=== PATIENT | female | born 1945 | race Caucasian/White ===

== ENCOUNTER 2021-11-09 08:17 | Inpatient (IN) | payer OTHER ==
[~2021-11-09] VITALS: Ht 162.6 cm; Wt 88.0 kg
[2021-11-09] VITALS (10 sets, daily range): BP systolic 106–150; BP diastolic 55–98
[~2021-11-09 08:17] MED LIST: ALEVE PM CAPLE1 EACH PO; ALEVE220 M1 PO; AMLODIPINE BESYL5 MG PO; ASPIR 8181 MG PO; ATORVASTATIN CA40 M1 PO; CIPROFLOXACIN500 MG PO; E-GEMS100 IU PO; FEOSOL45 M1 PO; INDOCIN50 MG PO; INDOMETHACIN50 MG PO; JANUMET 500 MG-1 TA1 PO; MOTRIN800 MG PO; NAPROSYN500 MG PO; NEXIUM40 MG PO
[2021-11-09 08:54] LABS: BASO % 0.3 % (0.0-1.0); EOS % 0.3 % (1.0-4.0); LYMPH # 1.2 10*3/uL (1.3-4.4); MEAN CELL VOLUME 95.8 fl (81.0-99.0); MEAN CORPUSCULAR HGB CONC 32.3 g/dl (33.0-37.0); MEAN PLATELET VOLUME 11.9 fl (9.6-12.3); MONO # 0.5 10*3/uL (0.1-1.0); MONO % 16.7 % (3.0-9.0); NEUT # 1.4 10*3/uL (2.3-7.9); NEUT % 44.1 % (47.0-73.0); NUCLEATED RED BLOOD CELL 0.9 % (0.0-0.0); PLATELET COUNT AUTOMATED 133 10*3/uL (130-400); RED BLOOD COUNT 3.13 10*6/uL (4.10-5.10); RED CELL DISTRI WIDTH 17.5 % (0-14.5); WHITE BLOOD COUNT 3.2 10*3/uL (4.8-10.8)
[2021-11-09 09:20] LABS: CREATININE 2.88 mg/dL (0.55-1.02); POTASSIUM 4.3 mmol/L (3.5-5.1); TOTAL PROTEIN 6.2 gm/dL (6.4-8.2)
[2021-11-09] MEDS ORDERED: NEURONTIN300 MG PO (15:24)
[2021-11-09] MEDS ORDERED: LISINOPRIL2.5 MG PO (15:27)
[2021-11-09] MEDS ORDERED: HYDROXYZINE HCL50 MG PO (15:27)
[2021-11-09] MEDS ORDERED: LIPITOR20 MG PO (15:28)
[2021-11-09] MEDS ORDERED: AMARYL4 MG PO (15:29)
[2021-11-09] MEDS ORDERED: BUSPIRONE10 MG PO (15:29)
[2021-11-09] MEDS ORDERED: BASAG SOL SC (15:31)
[2021-11-09] MEDS ORDERED: GLUCOPHAGE500 MG PO (15:32)
[2021-11-10] VITALS (12 sets, daily range): BP systolic 98–132; BP diastolic 42–84
[2021-11-10 04:53] LABS: HEMATOCRIT 27.4 % (37.0-47.0); MEAN CELL VOLUME 97.2 fl (81.0-99.0); MEAN CORPUSCULAR HGB 30.9 pg (27.0-31.0); MEAN CORPUSCULAR HGB CONC 31.8 g/dl (33.0-37.0); MEAN PLATELET VOLUME 11.9 fl (9.6-12.3); NUCLEATED RED BLOOD CELL 1.4 % (0.0-0.0); PLATELET COUNT AUTOMATED 112 10*3/uL (130-400); RED BLOOD COUNT 2.82 10*6/uL (4.10-5.10); WHITE BLOOD COUNT 2.9 10*3/uL (4.8-10.8)
[2021-11-10 05:16] LABS: ACT PARTIAL THROMBO TIME 31.1 SECONDS (20.0-32.1); INTERNATIONAL NORM RATIO 1.3 (2.0-3.5)
[2021-11-10 05:59] LABS: CREATININE 2.7 mg/dL (0.55-1.02); POTASSIUM 4.1 mmol/L (3.5-5.1); TOTAL PROTEIN 5.5 gm/dL (6.4-8.2)
[2021-11-10 06:06] LABS: FREE T4 1.21 ng/dl (0.76-1.46); THYROID STIM HORMONE (HS) 2.5 uIU/ml (0.358-4.75)
[2021-11-10 06:43] LABS: MANUAL DIFF REFLEX YES
[2021-11-10 06:46] LABS: ATYPICAL LYMPHS 1 % (0-0); OVALOCYTES FEW; PLATELET SUFFICIENCY LOW (NORMAL); POLYCHROMASIA SLIGHT; TARGET CELLS FEW; TOTAL CELLS COUNTED 100 #CELLS
[2021-11-11] VITALS (8 sets, daily range): BP systolic 90–104; BP diastolic 48–73
[2021-11-11 06:26] LABS: HEMATOCRIT 27.6 % (37.0-47.0); MEAN CELL VOLUME 99.3 fl (81.0-99.0); MEAN CORPUSCULAR HGB 31.3 pg (27.0-31.0); MEAN CORPUSCULAR HGB CONC 31.5 g/dl (33.0-37.0); MEAN PLATELET VOLUME 11.8 fl (9.6-12.3); NUCLEATED RED BLOOD CELL 1.1 % (0.0-0.0); PLATELET COUNT AUTOMATED 112 10*3/uL (130-400); RED BLOOD COUNT 2.78 10*6/uL (4.10-5.10); RED CELL DISTRI WIDTH 18.8 % (0-14.5); WHITE BLOOD COUNT 2.8 10*3/uL (4.8-10.8)
[2021-11-11 06:35] LABS: POTASSIUM 4.2 mmol/L (3.5-5.1)
[2021-11-11 06:37] LABS: MANUAL DIFF REFLEX YES
[2021-11-11 06:44] LABS: CREATININE 2.87 mg/dL (0.55-1.02); TOTAL PROTEIN 5.5 gm/dL (6.4-8.2)
[2021-11-11 07:47] LABS: BASOPHILS 1 % (0-1); OVALOCYTES FEW; PLATELET SUFFICIENCY LOW (NORMAL); POLYCHROMASIA SLIGHT; TOTAL CELLS COUNTED 100 #CELLS
[2021-11-12 05:20] LABS: CREATININE 3.35 mg/dL (0.55-1.02); POTASSIUM 4.6 mmol/L (3.5-5.1); TOTAL PROTEIN 5.5 gm/dL (6.4-8.2)
[2021-11-12 06:08] LABS: BASO % 0.6 % (0.0-1.0); EOS % 0.9 % (1.0-4.0); HEMATOCRIT 27.7 % (37.0-47.0); LYMPH # 1.7 10*3/uL (1.3-4.4); LYMPH % 49.3 % (27.0-41.0); MEAN CELL VOLUME 100.7 fl (81.0-99.0); MEAN CORPUSCULAR HGB 31.6 pg (27.0-31.0); MEAN CORPUSCULAR HGB CONC 31.4 g/dl (33.0-37.0); MEAN PLATELET VOLUME 11.8 fl (9.6-12.3); MONO # 0.3 10*3/uL (0.1-1.0); NEUT # 1.3 10*3/uL (2.3-7.9); NUCLEATED RED BLOOD CELL 0.6 % (0.0-0.0); PLATELET COUNT AUTOMATED 112 10*3/uL (130-400); RED BLOOD COUNT 2.75 10*6/uL (4.10-5.10); RED CELL DISTRI WIDTH 19.1 % (0-14.5); WHITE BLOOD COUNT 3.4 10*3/uL (4.8-10.8)
[2021-11-12 08:00] VITALS: BP 102/58
[2021-11-12 12:00] VITALS: BP 100/54
[2021-11-12 16:00] VITALS: BP 96/73
[2021-11-12 20:00] VITALS: BP 101/56
[2021-11-13] VITALS: BP 99/77
[2021-11-13 06:21] LABS: BASO % 0.6 % (0.0-1.0); EOS % 0.9 % (1.0-4.0); HEMATOCRIT 27.1 % (37.0-47.0); LYMPH % 42.9 % (27.0-41.0); MEAN CELL VOLUME 100.7 fl (81.0-99.0); MEAN CORPUSCULAR HGB 31.6 pg (27.0-31.0); MEAN CORPUSCULAR HGB CONC 31.4 g/dl (33.0-37.0); MEAN PLATELET VOLUME 11.5 fl (9.6-12.3); MONO # 0.5 10*3/uL (0.1-1.0); MONO % 9.9 % (3.0-9.0); NEUT # 2.1 10*3/uL (2.3-7.9); NEUT % 44.6 % (47.0-73.0); NUCLEATED RED BLOOD CELL 0.4 % (0.0-0.0); PLATELET COUNT AUTOMATED 108 10*3/uL (130-400); RED BLOOD COUNT 2.69 10*6/uL (4.10-5.10); RED CELL DISTRI WIDTH 18.9 % (0-14.5); WHITE BLOOD COUNT 4.6 10*3/uL (4.8-10.8)
[2021-11-13 06:41] LABS: CREATININE 3.49 mg/dL (0.55-1.02); POTASSIUM 4.9 mmol/L (3.5-5.1); TOTAL PROTEIN 5.4 gm/dL (6.4-8.2)
[2021-11-13 08:00] VITALS: BP 97/71
[2021-11-13 12:00] VITALS: BP 140/80
[2021-11-13 16:00] VITALS: BP 90/52
[2021-11-13 20:00] VITALS: BP 117/58
[2021-11-14] VITALS: BP 93/61
[2021-11-14 05:20] VITALS: BP 124/100
[2021-11-14 05:57] LABS: BASO % 0.3 % (0.0-1.0); EOS # 0.1 10*3/uL (0.0-0.4); EOS % 0.8 % (1.0-4.0); HEMATOCRIT 25.9 % (37.0-47.0); LYMPH # 2.1 10*3/uL (1.3-4.4); LYMPH % 33.9 % (27.0-41.0); MEAN CELL VOLUME 101.6 fl (81.0-99.0); MEAN CORPUSCULAR HGB 31.8 pg (27.0-31.0); MEAN CORPUSCULAR HGB CONC 31.3 g/dl (33.0-37.0); MEAN PLATELET VOLUME 11.5 fl (9.6-12.3); MONO # 0.7 10*3/uL (0.1-1.0); MONO % 10.8 % (3.0-9.0); NEUT # 3.2 10*3/uL (2.3-7.9); NUCLEATED RED BLOOD CELL 0.3 % (0.0-0.0); PLATELET COUNT AUTOMATED 103 10*3/uL (130-400); RED BLOOD COUNT 2.55 10*6/uL (4.10-5.10); RED CELL DISTRI WIDTH 18.9 % (0-14.5)
[2021-11-14 06:10] LABS: ALKALINE PHOSPHATASE 249 U/L (45-117); CHLORIDE 106 mmol/L (98-107); CREATININE 3.43 mg/dL (0.55-1.02); POTASSIUM 5.1 mmol/L (3.5-5.1); SGOT/AST 35 IU/L (3-35); SGPT/ALT 72 U/L (12-78); SODIUM 136 mmol/L (136-145); TOTAL PROTEIN 5.6 gm/dL (6.4-8.2)
[2021-11-14 06:49] LABS: BUN 56 mg/dl (7-24)
[2021-11-14 12:00] VITALS: BP 120/62
[2021-11-14 16:00] VITALS: BP 100/57
[2021-11-14 20:00] VITALS: BP 137/88
[2021-11-15 04:28] LABS: BILIRUBIN Negative (Negative); BLOOD 2+ (Negative); CLARITY Cloudy (Clear); COLOR Yellow (Yellow); GLUCOSE Negative (Negative); KETONE Negative (Negative); LEUKO ESTERASE 1+ (Negative); NITRITE Negative (Negative); SPECIFIC GRAVITY 1.015 (1.001-1.030); UROBILINOGEN 0.2 E.U./dl (0.0-1.0)
[2021-11-15 04:58] LABS: BACTERIA 1+; EPITHELIAL CELLS 0-2; RBC 21-30 rbc/hpf (0-2); YEAST 1+
[2021-11-15 06:04] LABS: CREATININE 3.75 mg/dL (0.55-1.02); POTASSIUM 5.4 mmol/L (3.5-5.1)
[2021-11-15 06:23] VITALS: BP 97/57
[2021-11-15 06:27] LABS: BASO % 0.5 % (0.0-1.0); EOS # 0.1 10*3/uL (0.0-0.4); HEMATOCRIT 25.4 % (37.0-47.0); LYMPH # 2.1 10*3/uL (1.3-4.4); MEAN CELL VOLUME 100.8 fl (81.0-99.0); MEAN CORPUSCULAR HGB CONC 30.7 g/dl (33.0-37.0); MEAN PLATELET VOLUME 11.8 fl (9.6-12.3); MONO # 0.6 10*3/uL (0.1-1.0); MONO % 9.9 % (3.0-9.0); NEUT # 3.2 10*3/uL (2.3-7.9); NEUT % 53.1 % (47.0-73.0); PLATELET COUNT AUTOMATED 117 10*3/uL (130-400); RED BLOOD COUNT 2.52 10*6/uL (4.10-5.10); RED CELL DISTRI WIDTH 19.4 % (0-14.5); WHITE BLOOD COUNT 6.1 10*3/uL (4.8-10.8)
[2021-11-15 08:00] VITALS: BP 140/84
[2021-11-15 12:00] VITALS: BP 120/58
[2021-11-15 16:00] VITALS: BP 124/58
[2021-11-15 20:00] VITALS: BP 92/54
[2021-11-16] VITALS: BP 102/62
[2021-11-16 05:32] LABS: CREATININE 4.14 mg/dL (0.55-1.02)
[2021-11-16 05:36] LABS: POTASSIUM 6.1 mmol/L (3.5-5.1)
[2021-11-16 06:24] LABS: BASO % 0.4 % (0.0-1.0); EOS # 0.1 10*3/uL (0.0-0.4); EOS % 0.6 % (1.0-4.0); HEMATOCRIT 26.3 % (37.0-47.0); LYMPH # 1.9 10*3/uL (1.3-4.4); LYMPH % 24.8 % (27.0-41.0); MEAN CELL VOLUME 101.2 fl (81.0-99.0); MEAN CORPUSCULAR HGB 30.8 pg (27.0-31.0); MEAN CORPUSCULAR HGB CONC 30.4 g/dl (33.0-37.0); MEAN PLATELET VOLUME 11.6 fl (9.6-12.3); MONO # 0.8 10*3/uL (0.1-1.0); MONO % 10.2 % (3.0-9.0); NEUT # 4.9 10*3/uL (2.3-7.9); NEUT % 62.8 % (47.0-73.0); PLATELET COUNT AUTOMATED 133 10*3/uL (130-400); RED CELL DISTRI WIDTH 19.8 % (0-14.5); WHITE BLOOD COUNT 7.8 10*3/uL (4.8-10.8)
[2021-11-16 08:00] VITALS: BP 105/56
[2021-11-16 12:00] VITALS: BP 122/50
[2021-11-16 16:00] VITALS: BP 102/52
[2021-11-16 17:12] LABS: CREATININE 4.2 mg/dL (0.55-1.02); POTASSIUM 5.5 mmol/L (3.5-5.1)
[2021-11-16 20:00] VITALS: BP 102/58
[2021-11-17] VITALS: BP 98/52
[2021-11-17 06:19] LABS: BASO % 0.4 % (0.0-1.0); EOS # 0.1 10*3/uL (0.0-0.4); EOS % 0.9 % (1.0-4.0); HEMATOCRIT 23.3 % (37.0-47.0); LYMPH # 2.2 10*3/uL (1.3-4.4); LYMPH % 39.4 % (27.0-41.0); MEAN CELL VOLUME 103.1 fl (81.0-99.0); MEAN CORPUSCULAR HGB 31.9 pg (27.0-31.0); MEAN CORPUSCULAR HGB CONC 30.9 g/dl (33.0-37.0); MEAN PLATELET VOLUME 11.4 fl (9.6-12.3); MONO # 0.5 10*3/uL (0.1-1.0); MONO % 8.9 % (3.0-9.0); NEUT # 2.8 10*3/uL (2.3-7.9); NEUT % 49.9 % (47.0-73.0); PLATELET COUNT AUTOMATED 123 10*3/uL (130-400); RED BLOOD COUNT 2.26 10*6/uL (4.10-5.10); RED CELL DISTRI WIDTH 19.9 % (0-14.5); WHITE BLOOD COUNT 5.6 10*3/uL (4.8-10.8)
[2021-11-17 06:20] LABS: CREATININE 4.3 mg/dL (0.55-1.02); POTASSIUM 5.6 mmol/L (3.5-5.1)
[2021-11-17 08:00] VITALS: BP 102/60; BP 87/56
[2021-11-17 12:00] VITALS: BP 98/54
[2021-11-17 16:00] VITALS: BP 96/60
[2021-11-17 20:00] VITALS: BP 100/60
[2021-11-18] VITALS: BP 102/54
[2021-11-18 05:35] LABS: ALKALINE PHOSPHATASE 161 U/L (45-117); BUN 67 mg/dl (7-24); CHLORIDE 105 mmol/L (98-107); CREATININE 4.01 mg/dL (0.55-1.02); POTASSIUM 4.8 mmol/L (3.5-5.1); SGOT/AST 12 IU/L (3-35); SGPT/ALT 38 U/L (12-78); SODIUM 136 mmol/L (136-145); TOTAL PROTEIN 5.8 gm/dL (6.4-8.2)
[2021-11-18 06:05] LABS: BASO % 0.4 % (0.0-1.0); EOS # 0.1 10*3/uL (0.0-0.4); EOS % 0.9 % (1.0-4.0); HEMATOCRIT 24.5 % (37.0-47.0); LYMPH # 2.2 10*3/uL (1.3-4.4); LYMPH % 39.2 % (27.0-41.0); MEAN CELL VOLUME 102.1 fl (81.0-99.0); MEAN CORPUSCULAR HGB 31.3 pg (27.0-31.0); MEAN CORPUSCULAR HGB CONC 30.6 g/dl (33.0-37.0); MEAN PLATELET VOLUME 11.1 fl (9.6-12.3); MONO # 0.5 10*3/uL (0.1-1.0); MONO % 9.9 % (3.0-9.0); NEUT # 2.7 10*3/uL (2.3-7.9); NEUT % 48.9 % (47.0-73.0); PLATELET COUNT AUTOMATED 144 10*3/uL (130-400); RED CELL DISTRI WIDTH 19.9 % (0-14.5); WHITE BLOOD COUNT 5.5 10*3/uL (4.8-10.8)
[2021-11-18 09:11] VITALS: BP 90/60
[2021-11-18 12:00] VITALS: BP 86/58
[2021-11-18 14:47] VITALS: BP 84/54
[2021-11-19] VITALS: BP 92/44
[2021-11-19 05:54] LABS: CREATININE 3.92 mg/dL (0.55-1.02); POTASSIUM 4.4 mmol/L (3.5-5.1)
[2021-11-19 06:23] LABS: BASO % 0.3 % (0.0-1.0); EOS # 0.1 10*3/uL (0.0-0.4); EOS % 0.9 % (1.0-4.0); LYMPH # 1.9 10*3/uL (1.3-4.4); LYMPH % 32.6 % (27.0-41.0); MEAN CELL VOLUME 103.4 fl (81.0-99.0); MEAN PLATELET VOLUME 11.5 fl (9.6-12.3); MONO # 0.6 10*3/uL (0.1-1.0); MONO % 10.2 % (3.0-9.0); NEUT # 3.2 10*3/uL (2.3-7.9); NEUT % 55.3 % (47.0-73.0); PLATELET COUNT AUTOMATED 140 10*3/uL (130-400); RED BLOOD COUNT 2.32 10*6/uL (4.10-5.10); RED CELL DISTRI WIDTH 20.7 % (0-14.5); WHITE BLOOD COUNT 5.8 10*3/uL (4.8-10.8)
[2021-11-19 08:37] VITALS: BP 92/40
[2021-11-20 00:05] VITALS: BP 86/52
[2021-11-20 04:46] VITALS: BP 82/48
[2021-11-20 05:32] LABS: POTASSIUM 3.6 mmol/L (3.5-5.1)
[2021-11-20 05:34] VITALS: BP 88/50
[2021-11-20 06:19] LABS: BASO % 0.3 % (0.0-1.0); EOS % 0.7 % (1.0-4.0); HEMATOCRIT 24.5 % (37.0-47.0); LYMPH # 1.9 10*3/uL (1.3-4.4); LYMPH % 32.9 % (27.0-41.0); MEAN CELL VOLUME 102.1 fl (81.0-99.0); MEAN CORPUSCULAR HGB 31.7 pg (27.0-31.0); MEAN PLATELET VOLUME 11.3 fl (9.6-12.3); MONO # 0.6 10*3/uL (0.1-1.0); MONO % 10.3 % (3.0-9.0); NEUT # 3.2 10*3/uL (2.3-7.9); NEUT % 54.9 % (47.0-73.0); PLATELET COUNT AUTOMATED 169 10*3/uL (130-400); RED CELL DISTRI WIDTH 20.5 % (0-14.5); WHITE BLOOD COUNT 5.8 10*3/uL (4.8-10.8)
[2021-11-20 08:00] VITALS: BP 145/92
[2021-11-20 16:00] VITALS: BP 92/62
[2021-11-20 20:00] VITALS: BP 104/52
[2021-11-21] VITALS: BP 90/50
[2021-11-21 05:32] LABS: POTASSIUM 3.7 mmol/L (3.5-5.1)
[2021-11-21 05:45] VITALS: BP 88/48
[2021-11-21 06:05] LABS: BASO % 0.2 % (0.0-1.0); EOS # 0.1 10*3/uL (0.0-0.4); EOS % 0.9 % (1.0-4.0); HEMATOCRIT 23.6 % (37.0-47.0); LYMPH # 1.8 10*3/uL (1.3-4.4); LYMPH % 31.9 % (27.0-41.0); MEAN CELL VOLUME 101.7 fl (81.0-99.0); MEAN CORPUSCULAR HGB 31.5 pg (27.0-31.0); MEAN CORPUSCULAR HGB CONC 30.9 g/dl (33.0-37.0); MONO # 0.6 10*3/uL (0.1-1.0); MONO % 10.9 % (3.0-9.0); NEUT # 3.1 10*3/uL (2.3-7.9); NEUT % 55.4 % (47.0-73.0); PLATELET COUNT AUTOMATED 173 10*3/uL (130-400); RED BLOOD COUNT 2.32 10*6/uL (4.10-5.10); RED CELL DISTRI WIDTH 21.2 % (0-14.5); WHITE BLOOD COUNT 5.6 10*3/uL (4.8-10.8)
[2021-11-21] MEDS ORDERED: AMIODARONE HYD200 MG PO (11:06)
[2021-11-21] MEDS ORDERED: PACERONE200 MG PO (11:06)
[2021-11-21] MEDS ORDERED: ATORVASTATIN CA40 M1 PO (11:06)
[2021-11-21] MEDS ORDERED: METOPROLOL SUCC25 M2 PO (11:06)
[2021-11-21] MEDS ORDERED: ELIQUIS5 M1 PO (11:06)
[2021-11-21] MEDS ORDERED: ZOFRAN4 MG PO (11:06)
[2021-11-21] MEDS ORDERED: NEURONTIN300 MG PO (11:06)
[2021-11-21] MEDS ORDERED: Duragesic 50 M50 MCG T (11:08)
[2021-11-21] MEDS ORDERED: COLACE100 MG PO (11:08)
[2021-11-21 12:00] VITALS: BP 94/50
== END 2021-11-21 14:44 | DRG 682 ==
LOC: ED 08:17 → 4E 10:15 → EDHOLD 10:15 → 4E 12:57
PROVIDERS: Emergency Medicine; Internal Medicine; Internal Medicine Nephrology; ADMIT Family Medicine; ATTEND Family Medicine
DX: N17.0 Acute kidney failure with tubular necrosis (principal); E43 Unspecified severe protein-calorie malnutrition; I13.0 Hypertensive heart and chronic kidney disease with heart failure and stage 1 through stage 4 chronic kidney disease, or unspecified chronic kidney disease; E87.1 Hypo-osmolality and hyponatremia; R65.10 Systemic inflammatory response syndrome (SIRS) of non-infectious origin without acute organ dysfunction; K57.32 Diverticulitis of large intestine without perforation or abscess without bleeding; C56.9 Malignant neoplasm of unspecified ovary; I43 Cardiomyopathy in diseases classified elsewhere; N18.4 Chronic kidney disease, stage 4 (severe); I48.91 Unspecified atrial fibrillation; K59.00 Constipation, unspecified; Z66 Do not resuscitate; Z51.5 Encounter for palliative care; I50.9 Heart failure, unspecified; E11.22 Type 2 diabetes mellitus with diabetic chronic kidney disease; E11.65 Type 2 diabetes mellitus with hyperglycemia; Z20.822 Contact with and (suspected) exposure to COVID-19; D53.9 Nutritional anemia, unspecified; E87.5 Hyperkalemia; F43.23 Adjustment disorder with mixed anxiety and depressed mood; Z88.8 Allergy status to other drugs, medicaments and biological substances; Z79.899 Other long term (current) drug therapy; Z82.49 Family history of ischemic heart disease and other diseases of the circulatory system; Z83.3 Family history of diabetes mellitus; Z92.21 Personal history of antineoplastic chemotherapy; Z90.49 Acquired absence of other specified parts of digestive tract; Z90.710 Acquired absence of both cervix and uterus; I25.2 Old myocardial infarction

== ENCOUNTER 2021-11-27 15:17 | Emergency (ER) | payer OTHER ==
[~2021-11-27] VITALS: Ht 162.5 cm; Wt 79.4 kg
[~2021-11-27 15:17] MED LIST changes: +AMARYL4 MG PO; +AMIODARONE HYD200 MG PO; +BASAG SOL SC; +BUSPIRONE10 MG PO; +COLACE100 MG PO; +Duragesic 50 M50 MCG T; +ELIQUIS5 M1 PO; +GLUCOPHAGE500 MG PO; +HYDROXYZINE HCL50 MG PO; +LIPITOR20 MG PO; +LISINOPRIL2.5 MG PO; +METOPROLOL SUCC25 M2 PO; +NEURONTIN300 MG PO; +PACERONE200 MG PO; +ZOFRAN4 MG PO
== END 2021-11-27 18:48 | disposition home or self-care (01) ==
LOC: ED 15:17
DX: K59.00 Constipation, unspecified (principal); Z88.8 Allergy status to other drugs, medicaments and biological substances; Z79.899 Other long term (current) drug therapy; Z98.51 Tubal ligation status; Z90.49 Acquired absence of other specified parts of digestive tract

== ENCOUNTER 2021-12-24 13:52 | Inpatient (IN) | payer OTHER ==
[~2021-12-24] VITALS: Ht 162.6 cm; Wt 90.4 kg
[2021-12-24] VITALS (7 sets, daily range): BP systolic 92–132; BP diastolic 44–79
[2021-12-24 14:38] LABS: BASO % 0.5 % (0.0-1.0); EOS % 0.5 % (1.0-4.0); HEMATOCRIT 31.1 % (37.0-47.0); LYMPH # 1.2 10*3/uL (1.3-4.4); LYMPH % 18.2 % (27.0-41.0); MEAN CELL VOLUME 104.4 fl (81.0-99.0); MEAN CORPUSCULAR HGB 31.9 pg (27.0-31.0); MEAN CORPUSCULAR HGB CONC 30.5 g/dl (33.0-37.0); MEAN PLATELET VOLUME 10.6 fl (9.6-12.3); MONO # 0.3 10*3/uL (0.1-1.0); MONO % 5.3 % (3.0-9.0); NEUT # 4.8 10*3/uL (2.3-7.9); NEUT % 75.2 % (47.0-73.0); PLATELET COUNT AUTOMATED 149 10*3/uL (130-400); RED BLOOD COUNT 2.98 10*6/uL (4.10-5.10); RED CELL DISTRI WIDTH 18.2 % (0-14.5); WHITE BLOOD COUNT 6.4 10*3/uL (4.8-10.8)
[2021-12-24 14:53] LABS: CREATININE 3.69 mg/dL (0.55-1.02); TOTAL PROTEIN 6.2 gm/dL (6.4-8.2)
[2021-12-24] MEDS ORDERED: XARE20MG PO (17:19)
[2021-12-24] MEDS ORDERED: LASIX20 MG PO (17:19)
[2021-12-24] MEDS ORDERED: LOPRESSOR25 MG PO (17:20)
[2021-12-25] VITALS (8 sets, daily range): BP systolic 92–122; BP diastolic 50–71
[2021-12-25 06:36] LABS: BASO % 0.4 % (0.0-1.0); EOS # 0.1 10*3/uL (0.0-0.4); EOS % 1.6 % (1.0-4.0); LYMPH # 1.8 10*3/uL (1.3-4.4); LYMPH % 26.4 % (27.0-41.0); MEAN CELL VOLUME 103.3 fl (81.0-99.0); MEAN CORPUSCULAR HGB 31.7 pg (27.0-31.0); MEAN CORPUSCULAR HGB CONC 30.6 g/dl (33.0-37.0); MEAN PLATELET VOLUME 11.1 fl (9.6-12.3); MONO # 0.6 10*3/uL (0.1-1.0); MONO % 9.3 % (3.0-9.0); NEUT # 4.2 10*3/uL (2.3-7.9); NEUT % 61.9 % (47.0-73.0); PLATELET COUNT AUTOMATED 167 10*3/uL (130-400); RED CELL DISTRI WIDTH 17.9 % (0-14.5); WHITE BLOOD COUNT 6.8 10*3/uL (4.8-10.8)
[2021-12-25 06:59] LABS: POTASSIUM 4.4 mmol/L (3.5-5.1)
[2021-12-25 07:07] LABS: CREATININE 3.7 mg/dL (0.55-1.02); TOTAL PROTEIN 6.2 gm/dL (6.4-8.2)
[2021-12-26] VITALS: BP 86/50
[2021-12-26 06:32] LABS: BASO % 0.5 % (0.0-1.0); EOS # 0.3 10*3/uL (0.0-0.4); EOS % 4.8 % (1.0-4.0); HEMATOCRIT 31.8 % (37.0-47.0); LYMPH # 2.4 10*3/uL (1.3-4.4); LYMPH % 36.7 % (27.0-41.0); MEAN CELL VOLUME 103.6 fl (81.0-99.0); MEAN CORPUSCULAR HGB 31.9 pg (27.0-31.0); MEAN CORPUSCULAR HGB CONC 30.8 g/dl (33.0-37.0); MEAN PLATELET VOLUME 10.8 fl (9.6-12.3); MONO # 0.7 10*3/uL (0.1-1.0); MONO % 10.9 % (3.0-9.0); NEUT % 46.9 % (47.0-73.0); PLATELET COUNT AUTOMATED 178 10*3/uL (130-400); RED BLOOD COUNT 3.07 10*6/uL (4.10-5.10); RED CELL DISTRI WIDTH 17.9 % (0-14.5); WHITE BLOOD COUNT 6.4 10*3/uL (4.8-10.8)
[2021-12-26 06:48] LABS: CREATININE 3.83 mg/dL (0.55-1.02); POTASSIUM 3.9 mmol/L (3.5-5.1)
[2021-12-26 08:00] VITALS: BP 103/69
[2021-12-26 12:00] VITALS: BP 116/62
[2021-12-26 16:39] VITALS: BP 107/60
[2021-12-26 20:00] VITALS: BP 136/68
[2021-12-27] VITALS: BP 99/68
[2021-12-27 06:22] LABS: CREATININE 3.97 mg/dL (0.55-1.02); POTASSIUM 3.6 mmol/L (3.5-5.1)
[2021-12-27 08:00] VITALS: BP 119/46
[2021-12-27 12:00] VITALS: BP 128/93
[2021-12-27 16:00] VITALS: BP 110/64
[2021-12-27 20:00] VITALS: BP 87/56; BP 92/60
[2021-12-27 23:41] VITALS: BP 112/57
[2021-12-28 08:00] VITALS: BP 114/57
[2021-12-28 12:00] VITALS: BP 115/46
[2021-12-28 12:39] LABS: CREATININE 4.19 mg/dL (0.55-1.02); POTASSIUM 3.6 mmol/L (3.5-5.1)
[2021-12-28 16:00] VITALS: BP 99/34
[2021-12-28 20:00] VITALS: BP 98/45
[2021-12-29] VITALS: BP 94/47
[2021-12-29 06:11] LABS: BASO % 0.2 % (0.0-1.0); EOS # 0.3 10*3/uL (0.0-0.4); EOS % 5.2 % (1.0-4.0); HEMATOCRIT 29.4 % (37.0-47.0); LYMPH # 2.7 10*3/uL (1.3-4.4); LYMPH % 47.5 % (27.0-41.0); MEAN CELL VOLUME 102.4 fl (81.0-99.0); MEAN CORPUSCULAR HGB 32.1 pg (27.0-31.0); MEAN CORPUSCULAR HGB CONC 31.3 g/dl (33.0-37.0); MEAN PLATELET VOLUME 10.9 fl (9.6-12.3); MONO # 0.4 10*3/uL (0.1-1.0); MONO % 7.7 % (3.0-9.0); NEUT # 2.3 10*3/uL (2.3-7.9); NEUT % 39.2 % (47.0-73.0); PLATELET COUNT AUTOMATED 155 10*3/uL (130-400); RED BLOOD COUNT 2.87 10*6/uL (4.10-5.10); RED CELL DISTRI WIDTH 16.7 % (0-14.5); WHITE BLOOD COUNT 5.8 10*3/uL (4.8-10.8)
[2021-12-29 06:37] LABS: CREATININE 4.29 mg/dL (0.55-1.02); POTASSIUM 3.3 mmol/L (3.5-5.1)
[2021-12-29 08:00] VITALS: BP 100/60
[2021-12-29] MEDS ORDERED: BUMETANIDE1 MG PO (09:14)
[2021-12-29] MEDS ORDERED: XARE15TA PO (09:14)
[2021-12-29] MEDS ORDERED: METOPROLOL SUCC25 M2 PO (09:14)
[2021-12-29 12:00] VITALS: BP 90/54
[2021-12-29 16:00] VITALS: BP 96/46
== END 2021-12-29 18:22 | disposition home health service (06) | DRG 291 ==
LOC: ED 13:52 → 4E 16:13 → EDHOLD 16:13 → 4E 12-25 03:54
PROVIDERS: Emergency Medicine; Hospitalist; Registered Nurse; Student in an Organized Health Care Education/Training Program; ADMIT Family Medicine; ATTEND Family Medicine
DX: I13.0 Hypertensive heart and chronic kidney disease with heart failure and stage 1 through stage 4 chronic kidney disease, or unspecified chronic kidney disease (principal); I50.23 Acute on chronic systolic (congestive) heart failure; N17.0 Acute kidney failure with tubular necrosis; J96.00 Acute respiratory failure, unspecified whether with hypoxia or hypercapnia; N18.4 Chronic kidney disease, stage 4 (severe); E44.0 Moderate protein-calorie malnutrition; C56.9 Malignant neoplasm of unspecified ovary; I48.19 Other persistent atrial fibrillation; Z66 Do not resuscitate; I43 Cardiomyopathy in diseases classified elsewhere; I34.0 Nonrheumatic mitral (valve) insufficiency; E11.22 Type 2 diabetes mellitus with diabetic chronic kidney disease; E11.65 Type 2 diabetes mellitus with hyperglycemia; Z79.4 Long term (current) use of insulin; D53.9 Nutritional anemia, unspecified; E78.2 Mixed hyperlipidemia; I48.0 Paroxysmal atrial fibrillation; Z92.21 Personal history of antineoplastic chemotherapy; Z88.8 Allergy status to other drugs, medicaments and biological substances; Z83.3 Family history of diabetes mellitus; Z90.49 Acquired absence of other specified parts of digestive tract; Z98.51 Tubal ligation status; Z80.0 Family history of malignant neoplasm of digestive organs; Z79.899 Other long term (current) drug therapy; Z51.5 Encounter for palliative care; Z68.34 Body mass index [BMI] 34.0-34.9, adult

== ENCOUNTER 2022-01-20 20:20 | Inpatient (IN) | payer OTHER ==
[~2022-01-20] VITALS: Ht 162.5 cm; Wt 83.5 kg
[~2022-01-20 20:20] MED LIST changes: +BUMETANIDE1 MG PO; +LASIX20 MG PO; +LOPRESSOR25 MG PO; +XARE15TA PO; +XARE20MG PO
[2022-01-20 20:34] VITALS: BP 161/78
[2022-01-20 20:48] LABS: BASO % 0.2 % (0.0-1.0); EOS % 0.2 % (1.0-4.0); HEMATOCRIT 32.8 % (37.0-47.0); LYMPH # 1.2 10*3/uL (1.3-4.4); LYMPH % 20.8 % (27.0-41.0); MEAN CELL VOLUME 103.5 fl (81.0-99.0); MEAN CORPUSCULAR HGB 32.5 pg (27.0-31.0); MEAN CORPUSCULAR HGB CONC 31.4 g/dl (33.0-37.0); MONO # 0.1 10*3/uL (0.1-1.0); MONO % 1.1 % (3.0-9.0); NEUT # 4.3 10*3/uL (2.3-7.9); NEUT % 77.3 % (47.0-73.0); PLATELET COUNT AUTOMATED 206 10*3/uL (130-400); RED BLOOD COUNT 3.17 10*6/uL (4.10-5.10); RED CELL DISTRI WIDTH 15.6 % (0-14.5); WHITE BLOOD COUNT 5.5 10*3/uL (4.8-10.8)
[2022-01-20 21:08] LABS: ACT PARTIAL THROMBO TIME 32.9 SECONDS (20.0-32.1); INTERNATIONAL NORM RATIO 1.3 (2.0-3.5)
[2022-01-20 21:11] LABS: CREATININE 3.91 mg/dL (0.55-1.02); POTASSIUM 5.5 mmol/L (3.5-5.1); TOTAL PROTEIN 7.4 gm/dL (6.4-8.2)
[2022-01-21 05:56] LABS: CREATININE 3.91 mg/dL (0.55-1.02); POTASSIUM 5.1 mmol/L (3.5-5.1); TOTAL PROTEIN 6.7 gm/dL (6.4-8.2)
[2022-01-21 06:22] LABS: ACT PARTIAL THROMBO TIME 36.9 SECONDS (20.0-32.1); INTERNATIONAL NORM RATIO 1.5 (2.0-3.5)
[2022-01-21 06:30] LABS: HEMATOCRIT 28.8 % (37.0-47.0); MEAN CELL VOLUME 102.5 fl (81.0-99.0); MEAN CORPUSCULAR HGB 32.7 pg (27.0-31.0); MEAN CORPUSCULAR HGB CONC 31.9 g/dl (33.0-37.0); MEAN PLATELET VOLUME 11.9 fl (9.6-12.3); RED BLOOD COUNT 2.81 10*6/uL (4.10-5.10); RED CELL DISTRI WIDTH 15.4 % (0-14.5); WHITE BLOOD COUNT 3.4 10*3/uL (4.8-10.8)
[2022-01-21 06:38] LABS: MANUAL DIFF REFLEX YES; PLATELET COUNT AUTOMATED 140 10*3/uL (130-400)
[2022-01-21 07:06] LABS: PLATELET SUFFICIENCY NORMAL (NORMAL); TOTAL CELLS COUNTED 100 #CELLS
[2022-01-21 07:07] LABS: OVALOCYTES FEW
[2022-01-21 07:10] VITALS: BP 137/84
[2022-01-21 12:10] VITALS: BP 143/70
[2022-01-21 16:30] VITALS: BP 136/78
[2022-01-21 17:25] VITALS: BP 114/97
[2022-01-21 20:00] VITALS: BP 90/31; BP 99/77
[2022-01-21 22:00] VITALS: BP 94/34
[2022-01-22] VITALS: BP 102/38
[2022-01-22 06:15] LABS: BILIRUBIN Negative (Negative); BLOOD Negative (Negative); CLARITY Clear (Clear); COLOR Yellow (Yellow); GLUCOSE Negative (Negative); KETONE Negative (Negative); LEUKO ESTERASE 1+ (Negative); NITRITE Negative (Negative); PH 5.5 (4.5-8.0); SPECIFIC GRAVITY 1.015 (1.001-1.030)
[2022-01-22 06:17] LABS: CREATININE 4.06 mg/dL (0.55-1.02); POTASSIUM 4.4 mmol/L (3.5-5.1)
[2022-01-22 06:24] LABS: BASO % 0.1 % (0.0-1.0); HEMATOCRIT 29.3 % (37.0-47.0); LYMPH # 2.3 10*3/uL (1.3-4.4); LYMPH % 26.8 % (27.0-41.0); MEAN CELL VOLUME 103.9 fl (81.0-99.0); MEAN CORPUSCULAR HGB 32.6 pg (27.0-31.0); MEAN CORPUSCULAR HGB CONC 31.4 g/dl (33.0-37.0); MONO # 0.3 10*3/uL (0.1-1.0); MONO % 3.2 % (3.0-9.0); NEUT # 6.1 10*3/uL (2.3-7.9); NEUT % 69.4 % (47.0-73.0); PLATELET COUNT AUTOMATED 156 10*3/uL (130-400); RED BLOOD COUNT 2.82 10*6/uL (4.10-5.10); RED CELL DISTRI WIDTH 15.4 % (0-14.5); WHITE BLOOD COUNT 8.7 10*3/uL (4.8-10.8)
[2022-01-22 06:25] LABS: INTERNATIONAL NORM RATIO 1.4 (2.0-3.5)
[2022-01-22 08:12] LABS: BACTERIA 4+; WBC 16-20 wbc/hpf (0-5)
[2022-01-22 12:00] VITALS: BP 106/47
[2022-01-22 16:00] VITALS: BP 124/42
[2022-01-22 20:00] VITALS: BP 99/77
[2022-01-23] VITALS: BP 105/40
[2022-01-23 06:22] LABS: POTASSIUM 4.1 mmol/L (3.5-5.1)
[2022-01-23 06:24] LABS: BASO % 0.1 % (0.0-1.0); CREATININE 4.1 mg/dL (0.55-1.02); EOS # 0.2 10*3/uL (0.0-0.4); EOS % 2.2 % (1.0-4.0); HEMATOCRIT 29.1 % (37.0-47.0); LYMPH # 2.4 10*3/uL (1.3-4.4); LYMPH % 32.2 % (27.0-41.0); MEAN CELL VOLUME 103.9 fl (81.0-99.0); MEAN CORPUSCULAR HGB 32.9 pg (27.0-31.0); MEAN CORPUSCULAR HGB CONC 31.6 g/dl (33.0-37.0); MEAN PLATELET VOLUME 11.6 fl (9.6-12.3); MONO # 0.2 10*3/uL (0.1-1.0); NEUT # 4.6 10*3/uL (2.3-7.9); NEUT % 63.2 % (47.0-73.0); PLATELET COUNT AUTOMATED 133 10*3/uL (130-400); RED CELL DISTRI WIDTH 15.1 % (0-14.5); WHITE BLOOD COUNT 7.3 10*3/uL (4.8-10.8)
[2022-01-23 08:00] VITALS: BP 124/72
[2022-01-23 12:00] VITALS: BP 115/68
[2022-01-23 15:18] VITALS: BP 96/51
== END 2022-01-23 17:53 | disposition home or self-care (01) | DRG 291 ==
LOC: ED 20:20 → EDHOLD 22:22 → 4E 01-21 16:57
PROVIDERS: Emergency Medicine; Internal Medicine; ADMIT Internal Medicine; ATTEND Internal Medicine
PROC: 4A02XM4 Measurement of Cardiac Total Activity, External Approach (ICD-10-PCS; principal; 2022-01-23)
PROC: 3E073KZ Introduction of Other Diagnostic Substance into Coronary Artery, Percutaneous Approach (ICD-10-PCS; 2022-01-23)
DX: I50.23 Acute on chronic systolic (congestive) heart failure (principal); J96.21 Acute and chronic respiratory failure with hypoxia; N17.0 Acute kidney failure with tubular necrosis; C56.9 Malignant neoplasm of unspecified ovary; N18.4 Chronic kidney disease, stage 4 (severe); N20.0 Calculus of kidney; E11.22 Type 2 diabetes mellitus with diabetic chronic kidney disease; Z66 Do not resuscitate; E11.65 Type 2 diabetes mellitus with hyperglycemia; E78.2 Mixed hyperlipidemia; D53.9 Nutritional anemia, unspecified; I48.91 Unspecified atrial fibrillation; E83.41 Hypermagnesemia; E87.5 Hyperkalemia; D72.810 Lymphocytopenia; Z80.0 Family history of malignant neoplasm of digestive organs; Z83.3 Family history of diabetes mellitus; Z82.49 Family history of ischemic heart disease and other diseases of the circulatory system; Z88.8 Allergy status to other drugs, medicaments and biological substances; Z79.899 Other long term (current) drug therapy; Z51.5 Encounter for palliative care; Z92.21 Personal history of antineoplastic chemotherapy

== ENCOUNTER 2022-05-18 22:38 | Emergency (ER) | payer OTHER ==
[~2022-05-18] VITALS: Wt 81.5 kg
[~2022-05-18 22:38] MED LIST changes: +GABAPENTIN100 M2 PO; +ONDANSETRON ODT8 MG PO; +PACERONE400 MG PO; +TRANSDERM-SCOP1 EAC1 T; +VITAMIN D350 MC2 PO; +VITAMIN D350 MC3 PO
== END 2022-05-19 06:35 | disposition short-term general hospital (02) ==
LOC: ED 22:38
DX: S52.592A Other fractures of lower end of left radius, initial encounter for closed fracture (principal); S52.692A Other fracture of lower end of left ulna, initial encounter for closed fracture; Z90.49 Acquired absence of other specified parts of digestive tract; Z98.51 Tubal ligation status; Z79.899 Other long term (current) drug therapy; Z88.8 Allergy status to other drugs, medicaments and biological substances; W18.30XA Fall on same level, unspecified, initial encounter; Y93.01 Activity, walking, marching and hiking; Y92.098 Other place in other non-institutional residence as the place of occurrence of the external cause; Y99.9 Unspecified external cause status

== ENCOUNTER → 2022-06-29 | Outpatient (CLI) | payer OTHER ==
[2022-06-29 11:56] LABS: BASO % 0.1 % (0.0-1.0); EOS # 0.2 10*3/uL (0.0-0.4); EOS % 2.2 % (1.0-4.0); HEMATOCRIT 29.4 % (37.0-47.0); LYMPH # 2.3 10*3/uL (1.3-4.4); LYMPH % 29.2 % (27.0-41.0); MEAN CELL VOLUME 105.4 fl (81.0-99.0); MEAN CORPUSCULAR HGB 33.7 pg (27.0-31.0); MEAN PLATELET VOLUME 10.4 fl (9.6-12.3); MONO # 0.4 10*3/uL (0.1-1.0); MONO % 5.3 % (3.0-9.0); NEUT # 4.9 10*3/uL (2.3-7.9); NEUT % 62.9 % (47.0-73.0); PLATELET COUNT AUTOMATED 143 10*3/uL (130-400); RED BLOOD COUNT 2.79 10*6/uL (4.10-5.10); RED CELL DISTRI WIDTH 22.3 % (0-14.5); WHITE BLOOD COUNT 7.7 10*3/uL (4.8-10.8)
[2022-06-29 12:09] LABS: CREATININE 3.68 mg/dL (0.55-1.02); POTASSIUM 4.2 mmol/L (3.5-5.1)
[2022-06-29 13:06] LABS: FERRITIN 564.3 ng/mL (10.0-291.0); VITAMIN D, 25-HYDROXY 23.4 ng/mL (30-100)
[2022-06-29 14:30] LABS: BILIRUBIN Negative (Negative); BLOOD Negative (Negative); CLARITY Clear (Clear); COLOR Yellow (Yellow); GLUCOSE Negative (Negative); KETONE Negative (Negative); LEUKO ESTERASE 1+ (Negative); NITRITE Positive (Negative); UROBILINOGEN 0.2 E.U./dl (0.0-1.0)
[2022-06-29 14:38] LABS: BACTERIA 4+
[2022-06-29 14:39] LABS: WBC 31-40 wbc/hpf (0-5)
[2022-06-29 14:44] LABS: HYALINE CAST 0-2
== END | disposition home or self-care (01) ==
LOC: LAB 11:09
PROVIDERS: ATTEND Internal Medicine Nephrology
DX: N18.5 Chronic kidney disease, stage 5 (principal); N25.81 Secondary hyperparathyroidism of renal origin; D63.1 Anemia in chronic kidney disease; Z79.899 Other long term (current) drug therapy